=== PATIENT | male | born 1990 | race Caucasian/White ===

== ENCOUNTER → 2020-03-14 15:05 | Outpatient (CLI) | payer OTHER, SELFPAY ==
--- NOTE | 2020-03-14 | DI.RAD.S_ITS ---
PROCEDURE: XR CHEST 2V INDICATIONS: DYSPNEA TECHNIQUE: 2 views of the chest were acquired. COMPARISON: None. FINDINGS: Surgical changes and devices: None. Lungs and pleura: Lungs are clear but lung volumes are large. No pneumonia found.. No pleural effusions or pneumothorax. Mediastinum: Mediastinal contours are normal. Heart size is normal. Bones and chest wall: No suspicious bony abnormalities. Soft tissues appear unremarkable. IMPRESSION: Large lung volumes, please correlate clinically for whether asthma or other source of obstructive lung disease is present. No pneumonia. Dictated by: Jay Latham M.D. on 03/14/2020 at 16:43 Approved by: Jay Latham M.D. on 03/14/2020 at 16:43
== END ==
PROVIDERS: PCP Family Medicine; Referring Provider Family Medicine; Visit Provider Family Medicine
DX: R06.00 Dyspnea, unspecified (principal)
CPT/HCPCS: 71046

== ENCOUNTER → 2020-03-28 15:41 | Outpatient (CLI) | payer OTHER, SELFPAY ==
[2020-03-29 23:23] LABS: COVID19 Sendout Not Detected (Not Detect)
== END ==
PROVIDERS: PCP Family Medicine; Visit Provider Physician Assistant
DX: Z01.812 Encounter for preprocedural laboratory examination (principal)
CPT/HCPCS: 87635

== ENCOUNTER → 2020-03-31 14:55 | Outpatient (CLI) | payer OTHER, SELFPAY ==
--- NOTE | 2020-04-05 08:50 | PM.PFT.1 ---
Pulmonary Function Test Referral & Results Date Patient Seen: 03/31/20 Requesting provider: Cl Benson Indication: Asthma Results: The spirometry demonstrates an FVC of 5.16 L which is 96% of predicted. The FEV1 was measured at 4.18 L which is 95% of predicted. The FEV1/FVC ratio was 81 which is 98% of predicted. Following the administration of bronchodilator there was a 16% improvement in FEF 25-75%. Lung volumes show an SVC of 5.17 L which is 100% of predicted. The diffusing capacity was measured at 40.11 which is 129% of predicted. The maximum voluntary ventilation was normal Interpretation: This study demonstrates probably normal spirometry. However there was a 16% improvement in small airway flow after bronchodilator as noted above and patient's diffusing capacity is 30% greater than average which together might suggest some element of asthma being present. This is not apparent when looking of flow volume loop however. If asthma is present, it would seemingly be extremely mild. Clinical correlation suggested
== END ==
PROVIDERS: PCP Family Medicine; Referring Provider Family Medicine; Visit Provider Family Medicine
DX: J45.909 Unspecified asthma, uncomplicated (principal); Z87.891 Personal history of nicotine dependence
CPT/HCPCS: 94060; 94726; 94729

== ENCOUNTER → 2022-01-21 15:56 | Outpatient (CLI) | payer OTHER, SELFPAY ==
[2022-01-21 16:36] LABS: COVID19 -Nasal RAPID Negative (Negative)
== END ==
PROVIDERS: PCP Family Medicine; Visit Provider Surgery
DX: Z20.822 Contact with and (suspected) exposure to COVID-19 (principal); Z01.812 Encounter for preprocedural laboratory examination
CPT/HCPCS: 87635; C9803

== ENCOUNTER 2022-01-22 08:11 | Day surgery (SDC) | payer OTHER, SELFPAY ==
[2022-01-22] VITALS (10 sets, daily range): BP systolic 117–144; BP diastolic 75–86; PULSE 72–92; RESP 12–20; TEMP 36.2–36.9; O2SAT 92–100; BMI 19.5
[2022-01-22] MEDS: LACTATED RINGERS 1,000 ML 42 ML IV (08:39)
[2022-01-22] MEDS: ACETAMINOPHEN 325 MG TABLET 975 MG PO (08:40)
--- NOTE | 2022-01-22 09:21 | PM.PREOP ---
Pre-operative Note COVID-19 COVID-19 status: Negative Result date/Date tested (Pos, Neg/Pending): 01/21/22 Interval Note History & Physical reviewed/Exam performed by Physician: Yes Changes to H&P: No ASA Class (for procedural sedation): II
[2022-01-22] MEDS: CEFAZOLIN 2 GM/20 ML SYRINGE IV (09:55)
--- NOTE | 2022-01-22 10:14 | SUR.OPER ---
Supine on pink pad OR bed, head on pillow, arms padded and tucked at sides, legs uncrossed, safety belt at thigh, tape over blanket over lower legs .
[2022-01-22] MEDS: BUPIVACAINE 0.5% (PF) VIAL 15 ML INJ (10:20)
[2022-01-22] MEDS: LIDOCAINE 1% W/EPI 15 ML INJ (10:22)
--- NOTE | 2022-01-22 12:04 | P.OP_ITS ---
Operative Date/Time/Diagnoses Date of procedure: 01/22/22 Time of procedure: 12:04 Pre-op diagnosis: Bilateral inguinal hernia Post-op diagnosis: same Procedure & Clinicians Procedure: Laparoscopic recurrent bilateral inguinal hernia repair with mesh Same procedure as scheduled: Yes Surgeon: Ronnie Bridges Anesthesia Type: General Operative Notes Findings: Direct left defect and right femoral defect Procedure in detail: Surgeon: Ronnie Bridges MD The patient was given preoperative antibiotics. The patient was brought to the operating room, placed on the table in the supine position with the arms tucked and general anesthesia was induced. The abdomen was prepped and draped in the usual fashion. A time-out was performed. A 1 cm supraumbilical incision was created and dissection was carried down to the fascia. The fascia was scored transversely with cautery. A Peon clamp was used to monroe the peritoneum. The Terrie port was placed and the abdomen was insufflated to 15 mmHg. The camera was inserted, there was no evidence of any injury from the entry. 5 mm ports were placed under direct vision in the mid left and mid right abdomen. The patient was positioned in steep Trendelenburg. We started on the left side. We created a left peritoneal flap. The peritoneum was dissected off the cord structures and a shallow direct defect was found. A a medium left Bard mesh was brought in and placed over the defect with the medial edge against Kevin's ligament. We then closed the peritoneal flap with a running 3-0 barbed suture. Next we turned our attention to the right side. The peritoneum was dissected right cord structures and a fat containing femoral hernia was found. A a medium right Bard mesh was brought in and placed over the defect with the medial edge against Kevin's ligament. We then closed the peritoneal flap with a running 3- 0 barbed suture. We took one last look around the abdomen and saw no other abnormalities. The suture was removed and accounted for. The 5 mm ports were removed under direct vision. The abdomen was desufflated. The Terrie port was removed. Additional local was injected into the fascia and the supraumbilical fascial incision was closed with for interrupted 0 Vicryl sutures. The skin incisions were closed with 4 Monocryl, Steri-Strips and Band-Aids. Post-operative Condition: stable Disposition: PACU
[2022-01-22] MEDS: ONDANSETRON 4 MG/2 ML INJ IV (12:26)
[2022-01-22] MEDS: OXYCODONE IR 5 MG TABLET PO (12:29)
--- NOTE | 2022-01-22 13:33 | SUR.PHASEII ---
01/22/22-1305-2nd oxycodone 5 mgs given for c/o abdomen discomfort . states tolerable at rest, more noticeable when fully upright/moving. 1320- Patient states ready for discharge home. has all paperwork and belongings. pain improved. Aware needs to stop at pharmacy for prescription on way home.
== END 2022-01-22 13:20 | disposition home or self-care (01) ==
PROVIDERS: PCP Family Medicine; Referring Provider Surgery; Visit Provider Surgery
PROC: 0YQ64ZZ Repair Left Inguinal Region, Percutaneous Endoscopic Approach (ICD-10-PCS; CPT 49651; principal; 2022-01-22 09:45)
DX: K40.21 Bilateral inguinal hernia, without obstruction or gangrene, recurrent (principal); J45.909 Unspecified asthma, uncomplicated
CPT/HCPCS: 49651; J0690; J1100; J1885; J2250; J2405; J2704; J3010

== ENCOUNTER → 2022-12-23 09:55 | Outpatient (CLI) | payer OTHER, SELFPAY ==
[2022-12-23 12:06] LABS: Semen Sperm Prescence Post-Vas Absent (ABSENT)
== END ==
PROVIDERS: PCP Family Medicine; Referring Provider Family Medicine; Visit Provider Family Medicine
DX: Z30.2 Encounter for sterilization (principal)
CPT/HCPCS: 89321

== ENCOUNTER → 2023-05-30 10:28 | Outpatient (CLI) | payer OTHER, SELFPAY ==
[2023-05-30 11:35] LABS: Add Manual Diff / Slide Review NO; Basophils Absolute Auto 0 /uL (0-100); Basophils Percent Auto 0.4 % (0-2); Eosinophils Absolute Auto 0 /uL (0-450); Eosinophils Percent Auto 0.5 % (2-4); Hematocrit 45.3 % (41-53); Hemoglobin 15.6 g/dL (13.5-17.5); Lymphocytes Absolute Auto 1300 /uL (1100-4500); Lymphocytes Percent Auto 20.4 % (25-40); Mean Corpuscular HGB Conc 34.5 % (30-36); Mean Corpuscular Hemoglobin 32.5 PG (26-34); Monocytes Absolute Auto 600 /uL (0-900); Neutrophils Absolute Auto 4300 /uL (1500-7000); Neutrophils Percent Auto 68.7 % (50-75); Platelet Count 197 X10^3/uL (150-400); Red Blood Cell Count 4.82 X10^6/uL (4.5-5.9); Red Cell Distribution Width 13.4 % (11.6-14.8); White Blood Cell Count 6.3 X10^3/uL (4.5-11.0)
[2023-05-30 11:53] LABS: Alanine Aminotransferase 34 IU/L (<50); Albumin 4.7 g/dL (3.5-5.0); Albumin Globulin Ratio 1.5 (1.0-2.8); Alkaline Phosphatase 68 U/L (38-126); Aspartate Aminotransferase 31 IU/L (17-59); BUN Creatinine Ratio 16.7 (6-22); Bilirubin Total 0.8 mg/dL (0.2-1.3); Blood Urea Nitrogen 13 mg/dL (9-20); Calcium 9.6 mg/dL (8.4-10.2); Carbon Dioxide 29 mmol/L (22-32); Chloride 101 mmol/L (98-107); Cholesterol 164 mg/dL (140-199); Estimated Glomerular Filt Rate > 60 mL/min (>60); Globulin 3.2 g/dL (1.7-4.1); Glucose 90 mg/dL (70-100); HDL Cholesterol 47 mg/dL (40-60); HEMOLYSIS < 15 (0-50); LDL Cholesterol Calculated 110 mg/dL (<100); Potassium 4.3 mmol/L (3.4-5.1); Sodium 139 mmol/L (137-145); Total Protein 7.9 g/dL (6.3-8.2); Triglycerides 33 mg/dL (35-150)
[2023-05-30 12:18] LABS: TSH w/ Reflex to FT4 0.54 uIU/mL (0.47-4.68)
== END ==
PROVIDERS: PCP Family Medicine; Referring Provider Family Medicine; Visit Provider Family Medicine
DX: Z00.00 Encounter for general adult medical examination without abnormal findings (principal); F32.A Depression, unspecified
CPT/HCPCS: 36415; 80053; 80061; 84443; 85025

== ENCOUNTER → 2024-12-28 15:15 | Outpatient (CLI) | payer OTHER, SELFPAY ==
--- NOTE | 2024-12-28 15:16 | DI.RAD.S_ITS ---
PROCEDURE: XR LUMBAR SPINE MIN 4V INDICATIONS: Low back pain w/radiculopathy R TECHNIQUE: 5 views of the lumbar spine were acquired, including bilateral oblique views. COMPARISON: None. FINDINGS: Five non rib-bearing lumbar vertebrae. The vertebral body heights are preserved. The intervertebral disc heights are preserved. The lumbar lordosis is preserved. No significant facet arthropathy. Minimal hypertrophy of the lower lumbar spinous processes. No significant foraminal narrowing. Possible ankylosis of the sacroiliac joints. Surgical clip at the level of the right hip joint. IMPRESSION: 1. No acute radiographic abnormality of the lumbar spine. 2. Possible ankylosis of the sacroiliac joints. Dedicated radiographs and serologic testing would be recommended for evaluation of an underlying seronegative spondyloarthropathy. Dictated by: Lopez Puckett M.D. on 12/28/2024 at 16:27 Approved by: Lopez Puckett M.D. on 12/28/2024 at 16:29
== END ==
PROVIDERS: PCP Family Medicine; Referring Provider Physician Assistant; Visit Provider Physician Assistant
DX: M54.16 Radiculopathy, lumbar region (principal)
CPT/HCPCS: 72110

== ENCOUNTER → 2024-12-29 14:16 | Outpatient (CLI) | payer OTHER, SELFPAY ==
--- NOTE | 2024-12-29 14:18 | DI.RAD.S_ITS ---
PROCEDURE: XR CERVICAL SPINE 4V OR 5V INDICATIONS: Neck pain TECHNIQUE: 5 views of the cervical spine acquired. COMPARISON: None. FINDINGS: Bones: No fractures or dislocations to the T1 level. Oblique images demonstrate no bony foraminal stenoses. Minimal spondylitic changes at C5-6. Mild straightening of normal cervical lordosis which may be due to patient positioning and/or concurrent muscle spasms. Soft tissues: No prevertebral soft tissue swelling. IMPRESSION: Cervical spine without acute fracture or traumatic malalignment. Minimal cervical spondylosis at C5-6. Mild straightening of normal cervical lordosis likely related to positioning and/or concurrent muscle spasms. Dictated by: Napoleon Underwood M.D. on 12/30/2024 at 0:08 Approved by: Napoleon Underwood M.D. on 12/30/2024 at 0:09
--- NOTE | 2024-12-29 14:18 | DI.RAD.S_ITS ---
PROCEDURE: XR SACROILIAC JOINT MIN 3V INDICATIONS: Abnormal Xray of lumbar spine TECHNIQUE: 3 views of the sacroiliac joints were acquired. COMPARISON: None. FINDINGS: Bones: No bony erosions or ankylosis. No suspicious bony lesions. No fractures. Soft tissues: Overlying bowel gas pattern is normal. No suspicious soft tissue densities. IMPRESSION: No radiographic evidence of sacroiliitis. Dictated by: Napoleon Underwood M.D. on 12/30/2024 at 0:09 Approved by: Napoleon Underwood M.D. on 12/30/2024 at 0:10
[2024-12-29 16:13] LABS: Erythrocyte Sedimentation Rate 5 MM/HR (0-15)
[2024-12-29 16:18] LABS: Alanine Aminotransferase 34 IU/L (<50); Albumin 5.1 g/dL (3.5-5.0); Albumin Globulin Ratio 1.8 (1.0-2.8); Alkaline Phosphatase 74 U/L (38-126); Aspartate Aminotransferase 34 IU/L (17-59); Bilirubin Total 0.9 mg/dL (0.2-1.3); Bilirubin Unconjugated 0.5 mg/dL (0.0-1.1); C-Reactive Protein Quant < 0.5 mg/dL (<1.0); Globulin 2.9 g/dL (1.7-4.1); HEMOLYSIS < 15 (0-50)
[2024-12-31 04:08] LABS: Immunoglobulin A 232 mg/dL (90-386)
[2025-01-07 16:11] LABS: HLA B27 Negative (.)
== END ==
PROVIDERS: PCP Family Medicine; Referring Provider Physician Assistant; Visit Provider Physician Assistant
DX: M54.2 Cervicalgia (principal); M45.9 Ankylosing spondylitis of unspecified sites in spine; R93.7 Abnormal findings on diagnostic imaging of other parts of musculoskeletal system
CPT/HCPCS: 36415; 72050; 72202; 80076; 81374; 82784; 85651; 86140